=== PATIENT | male | born 1965 | race Caucasian/White ===

== ENCOUNTER 2018-03-28 07:20 | Emergency (ER) | payer BC ==
[~2018-03-28] VITALS: Ht 185.4 cm; Wt 102.3 kg
[~2018-03-28 07:20] MED LIST: AUGMENTIN 875-11 TAB PO; CLARITIN 10 MG10 MG; COZAAR50 MG PO; GLUCOPHAGE500 MG PO; HYZAAR 100-25 T1 TAB PO; PERCOCET 10/3251 TA1 PO; PRAVACHOL40 MG PO; RESTORIL15 MG PO; ZOFRAN ODT4 MG/UDTAB PO
[2018-03-28 07:23] VITALS: Ht 185.4 cm; Wt 102.3 kg
[2018-03-28] MEDS ORDERED: OZEMPIC (07:28)
[2018-03-28] MEDS ORDERED: LASIX20 MG PO (07:28)
[2018-03-28] MEDS ORDERED: LIPITOR40 MG PO (07:29)
[2018-03-28] MEDS ORDERED: RESTORIL15 MG PO (07:30)
[2018-03-28] MEDS ORDERED: SINGULAIR10 MG PO (07:31)
[2018-03-28 08:13] LABS: BASOPHILS 0.3 % (0-2); EOSINOPHILS 0.4 % (0-7); HEMATOCRIT 43.2 % (42.0-54.0); HEMOGLOBIN 15.4 g/dL (13.5-17.5); IMMATURE GRANULOCYTES 0.1 % (0-5); LYMPHOCYTES 15.2 % (15-50); MCH 31.4 pg (26.0-34.0); MCHC 35.6 g/dL (31.0-37.0); MCV 88.2 fL (80.0-100.0); MEAN PLATELET VOLUME 11.2 fL (7.4-10.4); MONOCYTES 8.1 % (2-11); NEUTROPHILS 75.9 % (40-80); PLATELET COUNT 190 10x3/uL (130-400); WBC 7.6 10x3/uL (4.8-10.8)
[2018-03-28 08:21] LABS: APTT 24.5 SECONDS (22.8-39.4); INR 1.08 (0.85-1.17); PROTIME 13.5 SECONDS (11.6-15.0)
[2018-03-28 08:25] LABS: ALBUMIN 4.3 g/dL (3.4-5.0); ALKALINE PHOSPHATASE 87 U/L (46-116); ALT (SGPT) 39 U/L (10-68); BILIRUBIN - TOTAL 0.78 mg/dL (0.2-1.3); CALC OSMOLALITY 286 mosm/kg (275-300); CALCIUM 9.1 mg/dL (8.5-10.1); CARBON DIOXIDE 21.9 mmol/L (21.0-32.0); CHLORIDE - SERUM 104 mmol/L (98-107); CREATININE - SERUM 1.1 mg/dL (0.6-1.3); GLUCOSE 136 mg/dL (74-106); POTASSIUM - SERUM 3.4 mmol/L (3.5-5.1); PROTEIN - SERUM 7.2 g/dL (6.4-8.2); SODIUM 142 mmol/L (136-145); UREA NITROGEN 19 mg/dL (7-18); eGFR NON AFRICAN AMERICAN 75 mL/min (90-120)
[2018-03-28 08:28] LABS: UDS - AMPHET NEGATIVE QUAL (NEGATIVE); UDS - BARB NEGATIVE QUAL (NEGATIVE); UDS - BENZO NEGATIVE QUAL (NEGATIVE); UDS - COCAINE NEGATIVE QUAL (NEGATIVE); UDS - OPIATE NEGATIVE QUAL (NEGATIVE); UDS - PCP NEGATIVE QUAL (NEGATIVE); UDS - THC NEGATIVE QUAL (NEGATIVE)
[2018-03-28 08:30] LABS: APPEARANCE CLEAR (CLEAR); BILIRUBIN NEGATIVE (NEGATIVE); COLOR YELLOW (YELLOW); GLUCOSE NEGATIVE (NEGATIVE); KETONE NEGATIVE (NEGATIVE); NITRITE NEGATIVE (NEGATIVE); PROTEIN NEGATIVE (NEGATIVE); UROBILINOGEN NORMAL (NORMAL)
[2018-03-28 08:37] LABS: AMYLASE - SERUM 108 U/L (25-115); BILIRUBIN - DIRECT 0.19 mg/dL (0.00-0.30); BILIRUBIN - INDIRECT 0.59 mg/dL (0.00-1.00); CKMB 1.2 U/L (0.0-3.6); LIPASE 779 U/L (73-393); THYROID STIMULATING HORMONE 2.42 uIU/mL (0.36-3.74)
[2018-03-28 08:40] LABS: TROPONIN-I < 0.017 ng/mL (0.000-0.060)
[2018-03-28 13:12] VITALS: BP 153/102
== END 2018-03-28 13:13 | disposition home or self-care (01) ==
LOC: D.ER 07:20
PROVIDERS: Family Medicine
DX: R41.0 Disorientation, unspecified (principal); E11.9 Type 2 diabetes mellitus without complications; I10 Essential (primary) hypertension; I45.10 Unspecified right bundle-branch block